=== PATIENT | female | born 1990 | race Caucasian/White ===

== ENCOUNTER 2024-05-17 10:50 | Emergency (ER) | payer OTHER, SELFPAY ==
[2024-05-17 10:52] VITALS: BP 105/71; PULSE 88; RESP 22; TEMP 36.3; O2SAT 100; BMI 25.2
== END 2024-05-17 12:10 | disposition left against medical advice (07) ==
PROVIDERS: Emergency Provider Emergency Medicine
DX: M79.641 Pain in right hand (principal); Z53.21 Procedure and treatment not carried out due to patient leaving prior to being seen by health care provider
CPT/HCPCS: 99281

== ENCOUNTER 2024-05-19 15:25 | Emergency (ER) | payer OTHER, SELFPAY ==
--- NOTE | ~2024-05-19 | XR_ITS ---
CLINICAL HISTORY: pain, swelling Radiographs of the right hand, 3 views Comparison: None Findings: No fracture or dislocation. No cortical destruction or periostitis to indicate osteomyelitis. The joint spaces are preserved without osteophytosis. Bone mineralization is normal. Soft tissue swelling. Impression: No osseous abnormality. This document has been electronically signed by: Ene Delacruz MD on 05/19/2024 18:03:02
[2024-05-19 16:24] VITALS: BP 117/59; PULSE 71; RESP 16; TEMP 36.7; O2SAT 97; BMI 25.6
[2024-05-19 17:21] LABS: MANUAL DIFF FLAG NO
[2024-05-19 17:26] LABS: Basophils Percent Auto 0.4 % (0-2); Eosinophils Absolute Auto 0.1 X10*3/uL (0.0-0.4); Eosinophils Percent Auto 0.9 % (0-4); Hematocrit 35.8 % (37.0-47.0); Hemoglobin 12.1 g/dl (12.0-16.0); Imm Gran Abs Auto 0.04 X10*3/uL (0.00-0.03); Imm Gran Pct Auto 0.4 % (0.0-0.4); Lymphocytes Absolute Auto 1.7 X10*3/uL (1.2-4.9); Lymphocytes Percent Auto 17.3 % (20-40); Mean Corpuscular HGB Conc 33.8 g/dl (31.0-35.0); Mean Corpuscular Hemoglobin 31.5 pg (27.0-33.0); Mean Corpuscular Volume 93.2 fL (80.0-98.0); Mean Platelet Volume 10.2 fL (9.4-12.3); Monocytes Absolute Auto 0.5 X10*3/uL (0.1-1.2); Monocytes Percent Auto 5.5 % (2-11); Neutrophils Absolute Auto 7.2 x10*3/uL (2.0-8.3); Neutrophils Percent Auto 75.5 % (45-73); Platelet Count 180 X10*3/uL (160-400); Red Blood Count 3.84 X10*6/uL (4.20-5.50); Red Cell Distribution Width 13.7 % (11.0-16.0); White Blood Count 9.6 X10*3/uL (4.8-10.8)
[2024-05-19 17:44] LABS: Alanine Aminotransferase 140 U/L (0-31); Alkaline Phosphatase 63 U/L (39-117); Anion Gap 10 (12-20); Aspartate Amino Transferase 138 U/L (5-31); Bilirubin Total 0.6 mg/dL (0.0-1.0); Blood Urea Nitrogen 14 mg/dL (9-16); Calcium 9.3 mg/dL (8.4-10.2); Carbon Dioxide 29 mmol/L (22-29); Chloride 105 mmol/L (96-108); Creatinine Clr Calc Pharmacy 86.9; Estimated Glomerular Filt Rate > 60; Glucose Random 91 mg/dL (60-115); Potassium 4.3 mmol/L (3.3-5.1); Sodium 140 mmol/L (135-145); Total Protein 7.8 g/dL (6.5-8.0)
[2024-05-19 18:36] LABS: Erythrocyte Sedimentation Rate 23 MM/HR (0-20)
[2024-05-19 20:05] VITALS: BP 166/78; PULSE 76; RESP 20; TEMP 36.8; O2SAT 97
[2024-05-19] MEDS: cephALEXin 500 MG CAPSULE PO (20:55)
[2024-05-19] MEDS: Lidocaine HCl 1 % MPF 2 ML VIAL INFILTRATI (20:55)
[2024-05-19] MEDS: Doxycycline Monohydrate 100 MG CAPSULE PO (20:55)
--- NOTE | 2024-05-19 21:20 | ED_ITS ---
HPI - Skin/Abscess/Foreign Bdy General Chief complaint: Wound/Laceration Stated complaint: right ring finger red/swollen Time Seen by Provider: 05/19/24 20:34 Source: patient Mode of arrival: ambulatory Limitations: no limitations History of Present Illness ED Provider: HPI narrative: Patient otherwise healthy comes here with pain and redness of the right 4th finger for last 2 days started with a small pimple gradually getting worse with redness spreading to the dorsum of the hand painful to move her finger no history of similar abscess in the past Related Data Previous Rx's ?Medication ?Instructions ?Recorded cephalexin 500 mg capsule 500 mg PO QID 10 days #40 caps 05/19/24 doxycycline hyclate 100 mg tablet 100 mg PO BID #20 tabs 05/19/24 Allergies Allergy/AdvReac Type Severity Reaction Status Date / Time Penicillins [PENICILLINS] Allergy Unknown RASH Verified 05/19/24 16:24 Review of Systems 2 Review of Systems: Yes all other systems are reviewed and are negative PMFSH Social History Social History Advance Directives: No Advance Directives Information Provided: No Physical Exam 2 Vital Signs: Vital Signs: Last Vital Signs Temp 98.2 F 05/19/24 20:05 Pulse 76 05/19/24 20:05 Resp 20 05/19/24 20:05 BP 166/78 H 05/19/24 20:05 Pulse Ox 97 05/19/24 20:05 O2 Del Method Room Air 05/19/24 20:05 BMI result Body Mass Index 25.6 Appearance: Alert. Oriented X3. No acute distress. Eyes: PERRLA, No Nystagmus ENT: Pharynx normal. Oral Mucosa moist Neck: Normal inspection. Neck supple. CVS: Normal heart rate and rhythm. Pulses normal. Respiratory: No respiratory distress. Equal air entry bilateral, no wheezing/rales/rhonchi Abdomen: Soft and nontender. Bowel sounds are present, Skin: Skin warm and dry. Right ring finger with cellulitic changes at the base of the finger spreading to the dorsum painful for active finger movements but able to have full movements neurovascular intact Extremities: No lower extremity edema. No calf tenderness Neuro: Oriented X 3. No motor deficit. No sensory deficit.No cerebellar signs , cranial nerves II-XII intact Medications Administered Discontinued Medications Generic Name Dose Route Start Last Admin Trade Name Freq PRN Reason Stop Dose Admin Cephalexin HCl 500 mg 05/19/24 20:44 05/19/24 20:55 Cephalexin 500 Mg Capsule PO 05/19/24 20:45 500 mg ONCE ONE Administration Doxycycline Monohydrate 100 mg 05/19/24 20:44 05/19/24 20:55 Doxycycline Monohydrate 100 Mg Capsule PO 05/19/24 20:45 100 mg ONCE ONE Administration Lidocaine HCl 2 ml 05/19/24 20:44 05/19/24 20:55 Lidocaine Hcl 1 % Mpf 2 Ml Vial INFILTRATI 05/19/24 20:45 2 ml ONCE ONE Administration Medical Decision Making Medical Decision Making [facility] Narrative: Patient has cellulitis with small abscess in the right dorsum of the finger which was incised and pus drained dressing was applied patient felt much better will give doxycycline cephalexin antibiotic coverage patient advised to come back to the ER in 48 hours for recheck patient has had normal WBC count and good range of finger movements both active and passive after I and D Differential Diagnosis Differential Diagnoses: The differential diagnosis associated with the presentation includes Abscess/cellulitis/tenosynovitis Lab Data [facility] Lab Attestation statement: I reviewed the patient's lab results. 05/19/24 17:07 05/19/24 17:07 Labs: Lab Results 05/19/24 Range/Units 17:07 WBC 9.6 (4.8-10.8) X10*3/uL RBC 3.84 L (4.20-5.50) X10*6/uL Hgb 12.1 (12.0-16.0) g/dl Hct 35.8 L (37.0-47.0) % MCV 93.2 (80.0-98.0) fL MCH 31.5 (27.0-33.0) pg MCHC 33.8 (31.0-35.0) g/dl RDW 13.7 (11.0-16.0) % Plt Count 180 (160-400) X10*3/uL MPV 10.2 (9.4-12.3) fL Immature Gran % (Auto) 0.4 (0.0-0.4) % Neut % (Auto) 75.5 H (45-73) % Lymph % (Auto) 17.3 L (20-40) % King % (Auto) 5.5 (2-11) % Eos % (Auto) 0.9 (0-4) % Baso % (Auto) 0.4 (0-2) % Lymph # (Auto) 1.7 (1.2-4.9) X10*3/uL King # (Auto) 0.5 (0.1-1.2) X10*3/uL Eos # (Auto) 0.1 (0.0-0.4) X10*3/uL Baso # (Auto) 0.0 (0.0-0.2) X10*3/uL Abs Immat Gran (auto) 0.04 H (0.00-0.03) X10*3/uL Absolute Neuts (auto) 7.2 (2.0-8.3) x10*3/uL Absolute Nucleated RBC 0.000 (0.0-0.012) X10*3/uL Nucleated RBC % (auto) 0.0 (0.0-0.2) /100WBC ESR 23 H (0-20) MM/HR Sodium 140 (135-145) mmol/L Potassium 4.3 (3.3-5.1) mmol/L Chloride 105 (96-108) mmol/L Carbon Dioxide 29 (22-29) mmol/L Anion Gap 10 L (12-20) BUN 14 (9-16) mg/dL Creatinine 0.83 (0.5-1.4) mg/dL Estim Creat Clear Calc 86.9 Estimated GFR > 60 Random Glucose 91 (60-115) mg/dL Calcium 9.3 (8.4-10.2) mg/dL Total Bilirubin 0.6 (0.0-1.0) mg/dL AST 138 H (5-31) U/L ALT 140 H (0-31) U/L Alkaline Phosphatase 63 (39-117) U/L C-Reactive Protein 2.00 H (< or = 0.50) mg/dL Total Protein 7.8 (6.5-8.0) g/dL Albumin 4.0 (3.5-5.0) g/dL Independent Interpretation I performed an independent interpretation of an: Plain X-Ray Interpretation: NAD Discharge Plan Discharge Clinical Impression: Abscess, Cellulitis of finger of right hand Patient Disposition: Home, Self-Care Instructions: Cellulitis (ED), Abscess Incision and Drainage (DC) Additional Instructions: Local care as advised Keep the dressing in place Wound recheck in 2 days in the ER Take antibiotic as prescribed Report to the ER if worsening of the pain fever redness spreading to the hand Prescriptions: New cephalexin 500 mg capsule 500 mg PO QID 10 Days Qty: 40 0RF doxycycline hyclate 100 mg tablet 100 mg PO BID Qty: 20 0RF Print Language: Citizen [place]
[2024-05-19 22:51] VITALS: BP 166/78; PULSE 76; RESP 20; TEMP 36.8; O2SAT 97
== END 2024-05-19 22:51 | disposition home or self-care (01) ==
PROVIDERS: Physician Assistant Medical; Emergency Provider Internal Medicine; PCP Nurse Practitioner
DX: L02.511 Cutaneous abscess of right hand (principal); L03.011 Cellulitis of right finger
CPT/HCPCS: 26010; 36415; 73130; 80053; 85025; 85652; 86140; 87040; 99282; 99284; J2003

== ENCOUNTER → 2024-05-19 16:41 | Outpatient (BNV) | payer OTHER, SELFPAY | PROVIDERS: PCP Nurse Practitioner; Visit Provider Radiology Diagnostic Radiology | DX: M79.641 Pain in right hand (principal) | CPT/HCPCS: 73130 ==